=== PATIENT | male | born 1990 | race African-American/Black ===

== ENCOUNTER 2017-12-23 16:27 | Emergency (ER) | payer OTHER ==
[~2017-12-23] VITALS: Ht 165.1 cm; Wt 70.5 kg
[2017-12-23 16:29] VITALS: BP 119/79; PULSE 77; RESP 14; TEMP 98.7; O2SAT 98
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
[2017-12-23] MEDS ORDERED: IBUP1TAB7 PO (17:30)
== END 2017-12-23 18:00 | disposition home or self-care (01) ==
LOC: NEPK 16:27
DX: S21.112A Laceration without foreign body of left front wall of thorax without penetration into thoracic cavity, initial encounter (principal); W26.0XXA Contact with knife, initial encounter
CPT/HCPCS: 71046; 99283